=== PATIENT | male | born 1960 | race Two or more races ===

== ENCOUNTER 2019-12-05 09:16 | Emergency (ER) | payer OTHER ==
[~2019-12-05] VITALS: Ht 152.4 cm; Wt 63.5 kg
--- NOTE | 2019-12-05 09:29 | NUR ---
ED Nurse Note: Pt ambulated to ed c/o right lower toothache. pt reports that he was supposed to get his 2nd molar removed but has not. Pain and new onset of swelling present as of yesterday.
[2019-12-05 09:31] VITALS: BP 160/80
[2019-12-05] MEDS ORDERED: NORCO 5-325 TA1 EAC1 ORAL (09:41)
[2019-12-05] MEDS ORDERED: CLINDAMYCIN HC300 MG ORAL (09:41)
[2019-12-05] MEDS ORDERED: Clindamycin 150mg cap ORAL SCH (09:45)
--- NOTE | 2019-12-05 09:47 | NUR ---
ER DISCHARGE NOTE: Patient is cleared to be discharged per ERMD, pt is aox4, on room air, with stable vital signs. pt was given dc and prescription instructions, pt was able to verbalize understanding, pt id band removed. pt is able to ambulate with steady gait. pt took all belongings.
--- NOTE | 2019-12-05 09:47 | Emergency Room Report ---
History of Present Illness General Chief Complaint: Toothache Source: Patient Present Illness HPI 58-year-old male here with swelling and pain of his right lower molar tooth. Patient says that he has an infection in that tooth and was scheduled to have the tooth removed at his dentist office last week but he had to cancel the appointment due to a family emergency. Says that he is waiting to hear back from the dentist for a rescheduled appointment today. Has not taken any antibiotics. He came to the emergency department because the tooth became much more painful and the surrounding cheek became slightly swollen this morning. No vision changes, focal numbness or weakness, difficulty in moving his neck, difficulty in jaw opening. 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 Nursing Documentation-[place] Past Medical History: No Stated History Review of Systems All Other Systems: negative except mentioned in HPI Physical Exam Vital Signs Date Time Temp Pulse Resp B/P (MAP) Pulse Ox O2 Delivery O2 Flow Rate FiO2 12/05/19 09:23 97.9 100 18 160/80 (106) 99 Room Air Sp02 EP Interpretation: reviewed, normal General Appearance: no apparent distress, alert, non-toxic Head: normocephalic, atraumatic Eyes: bilateral eye normal inspection, bilateral eye PERRL ENT: hearing grossly normal, normal pharynx, no angioedema, normal voice, other - Mild right lower cheek edema without any signs of cellulitis. Right lower first molar with small amount of swelling and minor abscess formation at the root. Mild tooth pain on palpation. No other dental caries Neck: full range of motion, supple/symm/no masses Respiratory: chest non-tender, lungs clear, normal breath sounds, speaking full sentences Cardiovascular #1: regular rate, rhythm, no edema Cardiovascular #2: 2+ carotid (R), 2+ carotid (L), 2+ radial (R), 2+ radial (L), 2+ dorsalis pedis (R), 2+ dorsalis pedis (L) Gastrointestinal: normal bowel sounds, non tender, soft, non-distended, no guarding, no rebound Rectal: deferred Genitourinary: normal inspection, no CVA tenderness Musculoskeletal: back normal, normal range of motion, gait/station normal, non- tender Neurologic: alert, motor strength/tone normal, oriented x3, sensory intact, responsive, speech normal Psychiatric: judgement/insight normal, memory normal, mood/affect normal, no suicidal/homicidal ideation Lymphatic: no adenopathy Medical Decision Making Diagnostic Impression: Primary Impression: Dental abscess ER Course 58-year-old male here for evaluation of dental pain and right sided facial swelling. Patient was hemodynamically stable and had no evidence of trismus, Viridiana's angina, deep space neck infection. He had evidence of dental abscess. He is scheduled to follow-up with his dentist later this week. Was given a prescription for clindamycin. Told to come back to the emergency department with worsening symptoms, headaches, fevers, difficulty in jaw opening or neck movement. Discharged in stable condition. Last Vital Signs Date Time Temp Pulse Resp B/P (MAP) Pulse Ox O2 Delivery O2 Flow Rate FiO2 12/05/19 09:31 97.9 76 18 160/80 99 Room Air Disposition: HOME, SELF-CARE Condition: Stable Scripts Hydrocodone Bit/Acetaminophen 5-325* (NORCO 5-325 TABLET*) 1 Each Tablet 1 TAB ORAL Q4H PRN for For Pain, #10 TAB Prov: Wild Saeed M.D. 12/05/19 Clindamycin Hcl (CLINDAMYCIN HCL) 300 Mg Capsule 300 MG ORAL THREE TIMES A DAY, #21 CAP Prov: Wild Saeed M.D. 12/05/19 Referrals: [facility](age 2-12) - Orthodontic Clinic - Hours: Thu,Thu,, 8:15am and 1pm (new patient screening), . 1pm. Emergency clinic Thursday - Thursday 8:30am and 1pm, Tu. 1pm. *Call to check if clinic is open; No appointment necessary for the first visit (new patient screening), Arrive 15-30 minutes early as it is first come, first serve. [facility] - [facility] Location: 2nd Floor Room [address] [place] [address] INFO: Thu & Thu-8:30am-4:30pm, - 8:30am - 7pm, Thurs- Emergency only, Fri- 8:30am-11:30am and afternoon emergency only [facility] INFO: New Patient Screening: Mon- 8am-1pm Mon- 9am -5pm and Fri 2pm-5pm Patient Instructions: Dental Pain Additional Instructions: Please follow-up with your primary care doctor in the next 1 to 3 days to discuss this emergency department visit and for reevaluation. If you have any new or worsening symptoms please return to the emergency department for reevaluation. Wild Saeed M.D. Dec 05, 2019 09:47
[2019-12-05 09:48] VITALS: BP 155/79
== END 2019-12-05 09:49 | disposition home or self-care (01) ==
LOC: EMR 09:40
DX: K04.7 Periapical abscess without sinus (principal)
CPT/HCPCS: 99282

== ENCOUNTER 2020-02-07 10:39 | Emergency (ER) | payer OTHER ==
[~2020-02-07] VITALS: Ht 152.4 cm; Wt 68.0 kg
[~2020-02-07 10:39] MED LIST: CLINDAMYCIN HC300 MG ORAL; NORCO 5-325 TA1 EAC1 ORAL
--- NOTE | 2020-02-07 10:52 | NUR ---
ED Nurse Note: Patient from [facility] and walked in due to feeling of fatigue, bodyaces and headache. Patient tested covid (+) on 02/01/20. patient is AAO x4, ambulates with steady gait with non labored breathing.
[2020-02-07 11:02] VITALS: BP 126/70
[2020-02-07] MEDS ORDERED: Ketorolac 30mg Inj IV ONE (11:45)
--- NOTE | 2020-02-07 12:15 | NUR ---
ED Nurse Note: Collected blood specimen then sent.
[2020-02-07 12:16] LABS: BASOPHILS % (AUTO) 0.2 % (0.0-2.0); HEMATOCRIT 43.6 % (42.0-52.0); HEMOGLOBIN 15.1 G/DL (14.2-18.0); LYMPHOCYTES % (AUTO) 10.2 % (20.0-45.0); MEAN CORPUSCULAR VOLUME 81 FL (80-99); MONOCYTES % (AUTO) 7.9 % (1.0-10.0); NEUTROPHILS % (AUTO) 81.8 % (45.0-75.0); PLATELET COUNT 328 K/UL (150-450); WHITE BLOOD COUNT 9.8 K/UL (4.8-10.8)
[2020-02-07 12:37] LABS: ANION GAP 7 mmol/L (5-15); BLOOD UREA NITROGEN 10 mg/dL (7-18); CALCIUM 8.4 MG/DL (8.5-10.1); CARBON DIOXIDE 29 MMOL/L (21-32); CHLORIDE 101 MMOL/L (98-107); CREATININE 0.7 MG/DL (0.55-1.30); POTASSIUM 3.8 MMOL/L (3.5-5.1); SODIUM 136 MMOL/L (136-145)
[2020-02-07 12:42] LABS: ALBUMIN 2.9 G/DL (3.4-5.0); ALBUMIN/GLOBULIN RATIO 0.6 (1.0-2.7); ALKALINE PHOSPHATASE 106 U/L (46-116); ASPARTATE AMINO TRANSFERASE 39 U/L (15-37); BILIRUBIN,TOTAL 0.4 MG/DL (0.2-1.0)
[2020-02-07 12:52] LABS: ALANINE AMINOTRANSFERASE 33 U/L (12-78)
[2020-02-07] MEDS ORDERED: TYLENOL EXTRA500 MG ORAL (12:57)
[2020-02-07] MEDS ORDERED: ONDANSETRON ODT4 MG BC (12:57)
[2020-02-07 13:08] VITALS: BP 126/70
--- NOTE | 2020-02-07 13:08 | NUR ---
ER DISCHARGE NOTE: Patient is cleared to be discharged per ERMD, pt is aox4, on room air, with stable vital signs. pt was given dc and prescription instructions, pt was able to verbalize understanding, pt id band and iv site removed without complications. pt is able to ambulate with steady gait. pt took all belongings.
--- NOTE | 2020-02-07 14:38 | Emergency Room Report ---
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 COVID-19 Screening: Positive COVID-19 COVID-19 Testing Source: nose Nursing Documentation-[facility] Past Medical History: No Stated History Physical Exam Vital Signs Date Time Temp Pulse Resp B/P (MAP) Pulse Ox O2 Delivery O2 Flow Rate FiO2 02/07/20 10:42 98.2 105 16 126/70 (88) 89 Room Air Medical Decision Making Diagnostic Impression: Primary Impression: Episode of generalized weakness Additional Impression: COVID-19 Last Vital Signs Date Time Temp Pulse Resp B/P (MAP) Pulse Ox O2 Delivery O2 Flow Rate FiO2 02/07/20 13:08 98.7 86 20 126/70 96 Room Air Disposition: HOME, SELF-CARE Condition: Stable Scripts Acetaminophen* (TYLENOL EXTRA STRENGTH*) 500 Mg Tablet 500 MG ORAL Q8H PRN for Prn Headache/Temp > 101, #30 TAB 0 Refills Prov: Zane Elam MD 02/07/20 Ondansetron Odt* (ZOFRAN ODT*) 4 Mg Tab.rapdis 4 MG BC EVERY 6 HOURS PRN for Nausea & Vomiting, #10 TAB 0 Refills Prov: Zane Elam MD 02/07/20 Patient Instructions: Upper Respiratory Infection, Adult, [id number] Zane Elam MD Feb 07, 2020 14:38
== END 2020-02-07 13:08 | disposition home or self-care (01) ==
LOC: EMR 11:27
DX: U07.1 COVID-19 (principal); R53.1 Weakness
CPT/HCPCS: 36415; 80053; 85025; 96361; 96374; 96375; J1885; J2405; J7030; S0028; Z7502; 99284